=== PATIENT | male | born 1940 | race Caucasian/White ===

== ENCOUNTER 2018-01-27 14:30 | Inpatient (IN) | payer MEDICARE, OTHER ==
[~2018-01-27] VITALS: Ht 182.9 cm; Wt 108.6 kg
[~2018-01-27 14:30] MED LIST: ACET650T17 PO
[2018-02-17] MEDS ORDERED: UMEC62.5 INH (16:12)
[2018-02-17] MEDS ORDERED: ADVAIR INH (16:12)
[2018-02-17] MEDS ORDERED: HALO15CR3 TP (16:12)
[2018-02-17] MEDS ORDERED: HYDR-3237 PO (16:12)
[2018-02-17] MEDS ORDERED: FEXO60TA24 PO (16:12)
[2018-02-17] MEDS ORDERED: TRIA15CR3 TP (16:12)
[2018-02-17] MEDS ORDERED: MONT10TA6 PO (16:12)
[2018-02-17] MEDS ORDERED: ALBU8.5H8 INH ×2 (16:12)
[2018-02-17] MEDS ORDERED: TRAM50TA2 PO (16:12)
[2018-02-17] MEDS ORDERED: [UNRECOGNIZED DRUG - CODE] TP (16:12)
[2018-02-17] MEDS ORDERED: BETA15CR4 TP (16:12)
[2018-02-23] MEDS ORDERED: LACTATED RINGERS 1,000 ML IV SCH (07:54)
[2018-02-23] MEDS ORDERED: DIAZEPAM 5 MG TABLET PO ONE (08:00)
[2018-02-23] MEDS ORDERED: OxyconTIN ER 10 MG TAB.ER PO ONE (08:00)
[2018-02-23] MEDS ORDERED: FAMOTIDINE 20 MG TABLET PO ONE (08:00)
[2018-02-23] MEDS ORDERED: ONDANSETRON ODT 8 MG PO ONE (08:00)
[2018-02-23] MEDS ORDERED: ACETAMINOPHEN 500 MG TABLET PO ONE (08:00)
[2018-02-23] MEDS ORDERED: GABAPENTIN 300 MG CAPSULE PO ONE (08:00)
[2018-02-23] MEDS ORDERED: FLUT1DIS3 INH (08:28)
[2018-02-23] MEDS ORDERED: MIDAZOLAM 1 MG/ML, 2ML ONE (08:32)
[2018-02-23] MEDS ORDERED: FENTANYL PF 100 MCG/2ML ONE (08:32)
[2018-02-23] MEDS ORDERED: LIDOCAINE JELLY 2%, 30GM ONE (08:51)
[2018-02-23] MEDS ORDERED: TRANEXAMIC ACID 100 MG/ML, 10ML ONE ×2 (09:10→09:16)
[2018-02-23] MEDS ORDERED: EPINEPHRINE 1 MG/ML, 1ML ONE (09:11)
[2018-02-23] MEDS ORDERED: morphine SULFATE/PF 1 MG/ML, 10ML ONE (09:11)
[2018-02-23] MEDS ORDERED: ROPIvacaine/PF 0.2%, 20 ML ONE (09:11)
[2018-02-23] MEDS ORDERED: VANCOMYCIN 1,000 MG ONE (09:16)
[2018-02-23] MEDS ORDERED: PROPOFOL 50 ML ONE ×2 (09:25→10:27)
[2018-02-23] MEDS ORDERED: PHENYLEPHRINE 10 MG/ML ONE (09:31)
[2018-02-23] MEDS ORDERED: ONDANSETRON 2MG/ML, 2ML IV PRN ×2 (10:30→12:00)
[2018-02-23] MEDS ORDERED: hydrALAzine 20 MG/ML, 1ML IV PRN (10:30)
[2018-02-23] MEDS ORDERED: ALBUTEROL/IPRATROPIUM 2.5MG/0.5MG, 3 ML NPPB PRN (10:30)
[2018-02-23] MEDS ORDERED: FENTANYL PF 100 MCG/2ML IV PRN (10:30)
[2018-02-23] MEDS ORDERED: MIDAZOLAM 1 MG/ML, 2ML IV PRN (10:30)
[2018-02-23] MEDS ORDERED: MEPERIDINE/PF 25MG/0.5ML IVPush PRN (10:30)
[2018-02-23] MEDS ORDERED: PROMETHAZINE 25 MG/ML, 1ML IV PRN (10:30)
[2018-02-23] MEDS ORDERED: HYDROmorphone 2 MG/ML, 1ML IVPush PRN (10:30)
[2018-02-23] MEDS ORDERED: OXYcodone 5 MG/5 ML ORAL.SOL UDC PO PRN (10:30)
[2018-02-23] MEDS ORDERED: DEXAMETHASONE 4 MG/ML, 1ML ONE (11:03)
[2018-02-23] MEDS ORDERED: CEFAZOLIN 1,000 MG ONE (11:03)
[2018-02-23] MEDS ORDERED: PROMETHAZINE 12.5 MG SUPP PR PRN (12:00)
[2018-02-23] MEDS ORDERED: ACETAMINOPHEN 650 MG/20.3 ML UDC PO PRN ×2 (12:00→13:56)
[2018-02-23] MEDS ORDERED: HYDROmorphone 1 MG/ML, 1ML IV PRN (12:00)
[2018-02-23] MEDS ORDERED: LORazepam 1MG TABLET PO PRN (12:00)
[2018-02-23] MEDS ORDERED: MAGNESIUM HYDROXIDE 8%, 30ML UDC PO PRN (12:00)
[2018-02-23] MEDS ORDERED: ALUMINUM/MAG/SIMETHICONE 30 ML UDC PO PRN (12:00)
[2018-02-23] MEDS ORDERED: BISACODYL 10 MG SUPP PR PRN (12:00)
[2018-02-23] MEDS ORDERED: DIPHENHYDRAMINE 25 MG CAPSULE PO PRN (12:00)
[2018-02-23] MEDS ORDERED: ZOLPIDEM 5MG TABLET PO PRN (12:00)
[2018-02-23] MEDS ORDERED: ONDANSETRON 4 MG TABLET PO PRN (12:00)
[2018-02-23] MEDS ORDERED: DIAZEPAM 5 MG TABLET PO PRN (12:00)
[2018-02-23] MEDS ORDERED: OXYcodone IR 5MG TABLET PO PRN (12:00)
[2018-02-23] MEDS ORDERED: PROMETHAZINE 25 MG/ML, 1ML IM PRN (12:00)
[2018-02-23] MEDS ORDERED: SENNA/DOCUSATE TABLET PO PRN (12:00)
[2018-02-23] MEDS ORDERED: TRANEXAMIC ACID 1,500 MG in SODIUM CHLORIDE 0.9% 100 ML IVPB ONE (12:15)
[2018-02-23] MEDS ORDERED: ALBUTEROL/IPRATROPIUM 2.5MG/0.5MG, 3 ML HHN SCH (14:00)
[2018-02-23] MEDS: D5%-0.45% NACL 1,000 ML IV SCH ×2 (17:52→20:53)
[2018-02-23] MEDS: CEFAZOLIN PMX 2GM/50ML 50 ML IVPB SCH (17:52)
[2018-02-23 19:21] VITALS: BP 141/70
[2018-02-23] MEDS: DOCUSATE 100 MG CAPSULE PO SCH (20:54)
[2018-02-23] MEDS ORDERED: BUDESONIDE 0.5 MG/2 ML INHA INH SCH (21:00)
[2018-02-23] MEDS ORDERED: MONTELUKAST 10 MG TABLET PO SCH (21:00)
[2018-02-23] MEDS: ALBUTEROL/IPRATROPIUM 2.5MG/0.5MG, 3 ML NPPB SCH (21:00)
[2018-02-23] MEDS ORDERED: TEMPLATE NON-FORMULARY MED. (Fluticasone/Salmeterol** (Advair 250-50 Diskus**) 1 PUFF) INH SCH (21:00)
[2018-02-23] MEDS: BUDESONIDE 0.5 MG/2 ML INHA INH SCH (21:00)
[2018-02-24 00:38] VITALS: BP 135/68
[2018-02-24 02:07] VITALS: BP 118/59
[2018-02-24] MEDS: CEFAZOLIN PMX 2GM/50ML 50 ML IVPB SCH (02:19)
[2018-02-24] MEDS: ALBUTEROL/IPRATROPIUM 2.5MG/0.5MG, 3 ML NPPB SCH ×2 (03:00→09:00)
[2018-02-24] MEDS: HYDROcodone/APAP 5/325 TABLET PO PRN ×2 (05:49→09:56)
[2018-02-24] MEDS ORDERED: DEXAMETHASONE 4 MG/ML, 1ML IVPush SCH (06:00)
[2018-02-24] MEDS: D5%-0.45% NACL 1,000 ML IV SCH (07:32)
[2018-02-24 07:36] VITALS: BP 149/72
[2018-02-24] MEDS: DOCUSATE 100 MG CAPSULE PO SCH (07:48)
[2018-02-24] MEDS ORDERED: RIVAROXABAN 10 MG TABLET PO SCH (09:00)
[2018-02-24] MEDS ORDERED: TRIAMCINOLONE CRM 0.1%, 15GM TP SCH (09:00)
[2018-02-24] MEDS ORDERED: PYRITHIONE ZINC TP SCH (09:00)
[2018-02-24] MEDS ORDERED: TEMPLATE NON-FORMULARY MED. (Umeclidinium Bromide (Incruse Ellipta) 1 PUFF) INH SCH (09:00)
[2018-02-24] MEDS ORDERED: CLOBETASOL PROPIONATE CRM 0.05%, 15GM TP SCH (09:00)
[2018-02-24] MEDS ORDERED: TEMPLATE NON-FORMULARY MED. (Albuterol Sulfate (Proair Hfa) 1 PUFF) INH SCH (09:00)
[2018-02-24] MEDS ORDERED: MULTIVITAMINS/MINERALS TABLET PO SCH (09:00)
[2018-02-24] MEDS ORDERED: MONTELUKAST 10 MG TABLET PO SCH (09:00)
[2018-02-24] MEDS: BUDESONIDE 0.5 MG/2 ML INHA INH SCH (09:00)
[2018-02-24] MEDS ORDERED: LORATADINE 10 MG TABLET PO SCH (09:00)
[2018-02-24 11:21] VITALS: BP 145/69
== END 2018-02-24 12:45 | disposition home or self-care (01) | DRG 470 ==
LOC: ORIP 02-23 06:39 → ICU 02-23 13:15 → 4NOR 02-24 01:56 → DCLOUNGE 02-24 12:35
PROVIDERS: ADMIT Orthopaedic Surgery; ATTEND Orthopaedic Surgery
PROC: 0SRB06A Replacement of Left Hip Joint with Oxidized Zirconium on Polyethylene Synthetic Substitute, Uncemented, Open Approach (ICD-10-PCS; principal; 2018-02-23 09:45)
DX: M16.12 Unilateral primary osteoarthritis, left hip (principal); J96.10 Chronic respiratory failure, unspecified whether with hypoxia or hypercapnia; G89.29 Other chronic pain; L40.9 Psoriasis, unspecified; J44.9 Chronic obstructive pulmonary disease, unspecified; Z88.8 Allergy status to other drugs, medicaments and biological substances
CPT/HCPCS: 36415; 85014; 85018; 86850; 86900; 94640; C1713; G0378; J0171; J0690; J1100; J2250; J2274; J2704; J2795; J3010; J3370; J7620; Q0162; C1776; J2370; J7120

== ENCOUNTER 2018-02-17 14:49 | Outpatient (CLI) | payer MEDICARE, OTHER ==
[2018-02-17 16:08] LABS: BASOPHILS # (AUTO) 0.04 x10^3/uL (0-0.1); BASOPHILS % (AUTO) 1 % (0-1); EOSINOPHILS # (AUTO) 0.24 x10^3/uL (0-0.4); EOSINOPHILS % (AUTO) 3 % (1-7); LYMPHOCYTES # (AUTO) 1.48 x10^3/uL (1-3.4); LYMPHOCYTES % (AUTO) 18 % (22-44); MD NO; MEAN CORPUSCULAR HGB CONC 33.9 g/dL (33.2-36.2); MEAN CORPUSCULAR VOLUME 97.3 fL (81-97); MEAN PLATELET VOLUME 8.6 fL (7.4-10.4); MONOCYTES # (AUTO) 0.81 x10^3/uL (0.2-0.8); MONOCYTES % (AUTO) 10 % (2-9); NEUTROPHILS # (AUTO) 5.45 x10^3/uL (1.8-6.8); NEUTROPHILS % (AUTO) 68 % (42-75); PLATELET COUNT 111 x10^3/uL (130-400); RED BLOOD COUNT 4.59 x10^6/uL (4.38-5.82); RED CELL DISTRIBUTION WIDTH 14.8 % (9.4-14.8)
[2018-02-17] MEDS ORDERED: ADVAIR INH (16:12)
[2018-02-17] MEDS ORDERED: HYDR-3237 PO (16:12)
[2018-02-17] MEDS ORDERED: BETA15CR4 TP (16:12)
[2018-02-17] MEDS ORDERED: TRAM50TA2 PO (16:12)
[2018-02-17] MEDS ORDERED: MONT10TA6 PO (16:12)
[2018-02-17] MEDS ORDERED: [UNRECOGNIZED DRUG - CODE] TP (16:12)
[2018-02-17] MEDS ORDERED: ALBU8.5H8 INH ×2 (16:12)
[2018-02-17] MEDS ORDERED: TRIA15CR3 TP (16:12)
[2018-02-17] MEDS ORDERED: FEXO60TA24 PO (16:12)
[2018-02-17] MEDS ORDERED: UMEC62.5 INH (16:12)
[2018-02-17] MEDS ORDERED: HALO15CR3 TP (16:12)
[2018-02-17 16:21] LABS: ANION GAP 6 mmol/L (5-15); CALCIUM 8.8 mg/dL (8.5-10.1); CHLORIDE 109 mmol/L (98-107)
[2018-02-17 16:22] LABS: CREATININE 0.93 mg/dL (0.7-1.3)
== END 2018-02-17 23:59 | disposition home or self-care (01) ==
LOC: STAR 14:49
PROVIDERS: ATTEND Orthopaedic Surgery
DX: Z01.818 Encounter for other preprocedural examination (principal); M16.12 Unilateral primary osteoarthritis, left hip
CPT/HCPCS: 36415; 80048; 85025; 87081

== ENCOUNTER → 2020-09-04 | Outpatient (CLI) | payer MEDICARE, OTHER ==
[~2020-09-04] MED LIST changes: +ADVAIR INH; +ALBU0.63 NEB; +ALBU8.5H8 INH; +BENZ100C PO; +BETA15CR4 TP; +BUDE0.5A NAS; +FEXO1TAB29 PO; +FEXO60TA24 PO; +FINA5TAB4 PO; +FLUO15CR2 TP; +FLUT1BLS9 INH; +FLUT1DIS3 INH; +FURO20TA3 PO; +HALO15CR3 TP; +HYDR-3237 PO; +MONT10TA6 PO; +SPIR50TA PO; +TIOT18CA INH; +TRAM50TA2 PO; +TRIA15CR61 TD; +UMEC62.5 INH; +[UNRECOGNIZED DRUG - CODE] PO; +[UNRECOGNIZED DRUG - CODE] TP; +erythromycin opth
[2020-09-04 11:42] LABS: CALCIUM 8.7 mg/dL (8.5-10.1)
[2020-09-04 11:46] LABS: ALANINE AMINOTRANSFERASE 30 U/L (12-78); ALKALINE PHOSPHATASE 111 U/L (45-117); BILIRUBIN,TOTAL 1.5 mg/dL (0.2-1.0); CREATININE 1.27 mg/dL (0.7-1.3); TOTAL PROTEIN 6.5 g/dL (6.4-8.2)
[2020-09-04 12:02] LABS: ANION GAP 5 mmol/L (5-15); CHLORIDE 107 mmol/L (98-107)
== END | disposition home or self-care (01) ==
LOC: STAR 10:17
PROVIDERS: ATTEND Internal Medicine Geriatric Medicine
DX: Z01.818 Encounter for other preprocedural examination (principal); K70.31 Alcoholic cirrhosis of liver with ascites; I45.2 Bifascicular block
CPT/HCPCS: 36415; 80053; 93005

== ENCOUNTER 2020-09-10 08:44 | Day surgery (SDC) | payer MEDICARE, OTHER ==
[~2020-09-10] VITALS: Ht 182.9 cm; Wt 96.9 kg
[2020-09-10] MEDS ORDERED: LABETALOL 5MG/ML, 20ML IV PRN (09:30)
[2020-09-10] MEDS ORDERED: OXYcodone 5 MG/5 ML ORAL.SOL UDC PO PRN (09:30)
[2020-09-10] MEDS ORDERED: ACETAMINOPHEN 325 MG TABLET PO PRN (09:30)
[2020-09-10] MEDS ORDERED: ALBUTEROL SULFATE 2.5 MG/3 ML NPPB PRN (09:30)
[2020-09-10] MEDS ORDERED: ONDANSETRON 2MG/ML, 2ML IVPush PRN (09:30)
[2020-09-10] MEDS ORDERED: FENTANYL PF 100 MCG/2ML IV PRN (09:30)
[2020-09-10 09:33] VITALS: BP 133/72
[2020-09-10] MEDS ORDERED: CHLORHEXIDINE 15 ML UDC ONE (09:40)
[2020-09-10] MEDS ORDERED: CHLORHEXIDINE 15 ML UDC PO ONE (10:00)
[2020-09-10] MEDS ORDERED: LACTATED RINGERS 1,000 ML IV SCH (10:00)
[2020-09-10] MEDS ORDERED: PROPOFOL 10 MG/ML, 20ML ONE (10:25)
== END 2020-09-10 12:00 | disposition home or self-care (01) ==
LOC: OUT 08:44
PROVIDERS: ATTEND Internal Medicine Geriatric Medicine
DX: K70.31 Alcoholic cirrhosis of liver with ascites (principal); K72.90 Hepatic failure, unspecified without coma; I85.10 Secondary esophageal varices without bleeding; K76.6 Portal hypertension; K31.89 Other diseases of stomach and duodenum; J44.9 Chronic obstructive pulmonary disease, unspecified; I10 Essential (primary) hypertension; J84.10 Pulmonary fibrosis, unspecified; N40.0 Benign prostatic hyperplasia without lower urinary tract symptoms; L40.8 Other psoriasis; Z79.899 Other long term (current) drug therapy; Z87.891 Personal history of nicotine dependence; Z88.8 Allergy status to other drugs, medicaments and biological substances; Z99.81 Dependence on supplemental oxygen
CPT/HCPCS: 43235; J2704; J7120